=== PATIENT | female | born 1940 | race Caucasian/White ===

== ENCOUNTER → 2016-06-07 | Outpatient (CLI) | payer MEDICARE, MEDICAID | END | disposition home or self-care (01) | LOC: BFHH 11:11 | PROVIDERS: ATTEND Family Medicine | DX: I13.0 Hypertensive heart and chronic kidney disease with heart failure and stage 1 through stage 4 chronic kidney disease, or unspecified chronic kidney disease (principal); I50.1 Left ventricular failure, unspecified; N18.9 Chronic kidney disease, unspecified ==

== ENCOUNTER → 2017-02-07 | Outpatient (CLI) | payer MEDICARE, MEDICAID | END | disposition home or self-care (01) | LOC: BFHOS 10:12 | PROVIDERS: ATTEND Family Medicine | DX: E78.2 Mixed hyperlipidemia (principal); I10 Essential (primary) hypertension; E11.9 Type 2 diabetes mellitus without complications ==

== ENCOUNTER → 2017-09-12 | Outpatient (CLI) | payer MEDICARE, MEDICAID | LOC: BFHOS 12:15 | PROVIDERS: ATTEND Family Medicine | DX: E78.5 Hyperlipidemia, unspecified (principal); I13.0 Hypertensive heart and chronic kidney disease with heart failure and stage 1 through stage 4 chronic kidney disease, or unspecified chronic kidney disease; N18.9 Chronic kidney disease, unspecified; E11.22 Type 2 diabetes mellitus with diabetic chronic kidney disease; R94.5 Abnormal results of liver function studies ==

== ENCOUNTER → 2017-12-12 | Outpatient (CLI) | payer MEDICARE, MEDICAID | LOC: BFHH 11:15 | PROVIDERS: ATTEND Family Medicine | DX: I13.0 Hypertensive heart and chronic kidney disease with heart failure and stage 1 through stage 4 chronic kidney disease, or unspecified chronic kidney disease (principal); N18.9 Chronic kidney disease, unspecified; I50.1 Left ventricular failure, unspecified ==

== ENCOUNTER → 2018-04-04 | Outpatient (CLI) | payer MEDICARE, MEDICAID | LOC: BFHH 09:50 | PROVIDERS: ATTEND Family Medicine | DX: I13.0 Hypertensive heart and chronic kidney disease with heart failure and stage 1 through stage 4 chronic kidney disease, or unspecified chronic kidney disease (principal); N18.9 Chronic kidney disease, unspecified; I50.1 Left ventricular failure, unspecified; E78.5 Hyperlipidemia, unspecified ==

== ENCOUNTER → 2018-07-10 | Outpatient (CLI) | payer MEDICARE, MEDICAID | LOC: BFHH 10:13 | PROVIDERS: ATTEND Family Medicine | DX: I13.0 Hypertensive heart and chronic kidney disease with heart failure and stage 1 through stage 4 chronic kidney disease, or unspecified chronic kidney disease (principal); I50.9 Heart failure, unspecified; E11.22 Type 2 diabetes mellitus with diabetic chronic kidney disease ==

== ENCOUNTER → 2020-02-13 | Outpatient (CLI) | payer MEDICARE, MEDICAID | LOC: BFHH 11:56 | PROVIDERS: ATTEND Family Medicine | DX: I69.351 Hemiplegia and hemiparesis following cerebral infarction affecting right dominant side (principal); I13.0 Hypertensive heart and chronic kidney disease with heart failure and stage 1 through stage 4 chronic kidney disease, or unspecified chronic kidney disease; N18.9 Chronic kidney disease, unspecified; I50.1 Left ventricular failure, unspecified; E11.42 Type 2 diabetes mellitus with diabetic polyneuropathy; D50.0 Iron deficiency anemia secondary to blood loss (chronic); E78.2 Mixed hyperlipidemia ==

== ENCOUNTER 2020-05-11 13:48 | Observation (INO) | payer MEDICARE, MEDICAID ==
--- NOTE | 2020-05-11 14:32 | RAD ---
EXAM DESCRIPTION: Pelvis, AP radiograph CLINICAL HISTORY: Fall with left hip pain FINDINGS/ IMPRESSION: Osteopenia. Irregularity and lucency of the left greater trochanter consistent with a nondisplaced fracture. No femoral neck fracture. No lytic or blastic bony lesion Moderate osteoarthritis bilateral sacroiliac joints. Mild osteoarthritis bilateral hips. Enthesophytes at tendon attachments Atherosclerotic vascular calcifications Electronically signed by: Tonio Bar MD 05/11/2020 2:31 PM [facility]
--- NOTE | 2020-05-11 14:34 | RAD ---
EXAM DESCRIPTION: Left femur, 4 radiographs CLINICAL HISTORY: Fall injury. Left hip pain FINDINGS/ IMPRESSION: Irregularity and lucency of the greater trochanter left hip consistent with a trochanteric fracture. Questionable faint lucency partially extending intertrochanteric on the frog-leg lateral. Recommend CT for further evaluation. No evidence of femoral neck fracture. Normal contour of the femoral head Osteopenia. No lytic or blastic bony lesion. Left total knee arthroplasty. No fracture of the distal femur Electronically signed by: Tonio Bar MD 05/11/2020 2:32 PM [facility]
--- NOTE | 2020-05-11 14:35 | RAD ---
EXAM DESCRIPTION: Left knee, 3 radiographs CLINICAL HISTORY: Fall injury. Knee pain FINDINGS/ IMPRESSION: Total knee arthroplasty. No periprosthetic fracture or osteolysis Osteopenia. No large joint effusion. No diagnostic soft tissue injury. Atherosclerotic calcifications Electronically signed by: Tonio Bar MD 05/11/2020 2:33 PM [facility]
--- NOTE | 2020-05-11 15:09 | ED.PDOC ---
History of Present Illness - General Chief Complaint: Trauma Stated Complaint: left leg and hip pain from fall Time Seen by Provider: 05/11/20 14:09 Source: patient, RN notes reviewed, Vital Signs reviewed Exam Limitations: no limitations, other - History of Present Illness Initial Comments: Patient is a 80-year-old white female who presents s/p fall at home with complaints of left hip pain and inability to walk due to the pain. The pain is stabbing in nature. Is worse with ambulation or movement. Is better when she remains still. The pain is constant. The pain radiates down her left leg. Occurred: just prior to arrival Severity: moderate Pain Location: lower extremity Method of Injury: fall Improving Factors: nothing Worsening Factors: movement Loss of Consciousness: no loss of consciousness Associated Symptoms (Fall): trouble walking Allergies/Adverse Reactions: Allergies NO KNOWN ALLERGY Allergy (Unverified 05/11/20 14:26) Home Medications: Ambulatory Orders Bacitracin (Ophthalmic) [Bacitracin] 500 unit OP DAILY PRN 07/28/14 Bimatoprost 0.01% Ophth [Lumigan Opth Bre] 0.03 % OP BEDTIME 07/28/14 Fenofibrate [Tricor] 145 mg PO DAILY 07/28/14 Gabapentin 300 mg PO BID 07/28/14 HYDROcodone 10MG/APAP 325MG [[place] 10/325] 1 ea PO Q4H PRN 07/28/14 Hydrochlorothiazide 12.5 mg PO DAILY 07/28/14 Lisinopril [Prinivil] 40 mg PO DAILY 07/28/14 Losartan Potassium 100 mg PO DAILY 07/28/14 Metformin HCl [Metformin Hydrochloride] 1,000 mg PO BIDFD 07/28/14 Pantoprazole Tablet [Protonix] 40 mg PO ACBK 07/28/14 Simvastatin 40 mg PO BEDTIME 07/28/14 Temazepam [Restoril] 15 mg PO BEDTIME 07/28/14 Torsemide [Demadex] 20 mg PO DAILY 07/28/14 cycloSPORINE 0.05% OPTH [Restasis] 0.05 % OP BID 07/28/14 Review of Systems - Review of Systems Constitutional: States: no symptoms reported, see HPI. Denies: chills, fever, malaise, weakness EENTM: States: no symptoms reported. Denies: eye pain, blurred vision, double vision, throat pain Respiratory: States: no symptoms reported. Denies: cough, short of breath, stridor, wheezing Cardiology: States: no symptoms reported. Denies: chest pain, palpitations, syncope Gastrointestinal/Abdominal: States: no symptoms reported. Denies: abdominal pain, diarrhea, nausea, vomiting Genitourinary: States: no symptoms reported. Denies: dysuria, frequency Musculoskeletal: States: see HPI, joint pain - left hip Skin: States: no symptoms reported. Denies: change in color, rash Neurological: States: no symptoms reported. Denies: tingling, tremors, weakness Endocrine: States: no symptoms reported. Denies: increased hunger, increased th irst, increased urine Hematologic/Lymphatic: States: no symptoms reported. Denies: blood clots, easy bleeding All other Systems: Reviewed and Negative Past Medical History (General) - Patient Medical History Hx Seizures: No Hx Stroke: Yes Hx Dementia: No Hx Asthma: No Hx of COPD: No Hx Cardiac Disorders: Yes Hx Congestive Heart Failure: Yes Hx Pacemaker: No Hx Hypertension: Yes Hx Thyroid Disease: No Hx Diabetes: Yes Hx Gastroesophageal Reflux: No Hx Renal Disease: No Hx Cancer: No Hx Hepatitis C: No Hx MRSA: No - Vaccination History Hx Tetanus, Diphtheria Vaccination: Yes Hx Influenza Vaccination: Yes Hx Pneumococcal Vaccination: Yes - Social History Hx Tobacco Use: Yes Hx Alcohol Use: No Hx Substance Use: No Hx Physical Abuse: No Hx Emotional Abuse: No - Female History Patient is a Female of Child Bearing Age (10 -59 yrs old): No Family Medical History - Family History Mother Living Status: Still Living Hx Family Hypertension: Yes Hx Cardiac Disease: Yes Father Living Status: Hx Cardiac Disease: Yes Physical Exam - Physical Exam General Appearance: Alert, Anxious, Obvious distress, Well Developed, Well Groomed, Well Hydrated, Well Nourished Head Injury: no evidence of injury Eye Exam: bilateral normal ENT Exam: hearing grossly normal, no evidence of ENT injury, no dental injury Neck Exam: full range of motion, normal alignment Cardiovascular/Respiratory: regular rate, rhythm, no M/R/G, normal peripheral pulses, no JVD, normal breath sounds, no respiratory distress Gastrointestinal/Abdominal: normal bowel sounds, non tender, soft Back Exam: normal inspection, no CVA tenderness Extremity Exam: no pedal edema, pelvis stable, bony-point tenderness - left hip 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 I discussed this with the on-call orthopedist, Dr. Gutierrez, and he will consult on the patient I will admit the patient to the hospitalist service. Patient has been given pain medication and antiemetics. Awaiting lab work and EKG. 05/11/20 16:48 A[address] placement into bed at this time. Patient is resting quietly and comfortably. Gilbert Bailey M.D. #[id number] - Results/Orders Results/Orders: EXAM DESCRIPTION: Pelvis, AP radiograph CLINICAL HISTORY: Fall with left hip pain FINDINGS/ IMPRESSION: Osteopenia. Irregularity and lucency of the left greater trochanter consistent with a nondisplaced fracture. No femoral neck fracture. No lytic or blastic bony lesion Moderate osteoarthritis bilateral sacroiliac joints. Mild osteoarthritis bilateral hips. Enthesophytes at tendon attachments Atherosclerotic vascular calcifications Electronically signed by: Tonio Bar MD 05/11/2020 2:31 PM EXAM DESCRIPTION: Left knee, 3 radiographs CLINICAL HISTORY: Fall injury. Knee pain FINDINGS/ IMPRESSION: Total knee arthroplasty. No periprosthetic fracture or osteolysis Osteopenia. No large joint effusion. No diagnostic soft tissue injury. Atherosclerotic calcifications Electronically signed by: Tonio Bar MD 05/11/2020 2:33 PM EXAM DESCRIPTION: Left femur, 4 radiographs CLINICAL HISTORY: Fall injury. Left hip pain FINDINGS/ IMPRESSION: Irregularity and lucency of the greater trochanter left hip consistent with a trochanteric fracture. Questionable faint lucency partially extending intertrochanteric on the frog-leg lateral. Recommend CT for further evaluation. No evidence of femoral neck fracture. Normal contour of the femoral head Osteopenia. No lytic or blastic bony lesion. Left total knee arthroplasty. No fracture of the distal femur Electronically signed by: Tonio Bar MD 05/11/2020 2:32 PM EXAM DESCRIPTION: CT-Head CLINICAL HISTORY: fall with confusion COMPARISON: 08/08/2014 TECHNIQUE: Multiple axial images of the head without contrast. Multiplanar reformatted images. This exam was performed according to our departmental dose-optimization program, which includes automated exposure control, adjustment of the mA and/or kV according to patient size and/or use of iterative reconstruction technique. FINDINGS: No CT evidence of hemorrhage or mass effect. Large chronic left MCA territory infarct with frontal and temporal encephalomalacia which is new since the 2014 exam. Associated ex vacuo dilatation of the left lateral ventricle. Moderate generalized volume loss and moderate patchy supratentorial white matter hypodensities. There are no abnormal extra-axial fluid collections. Calcific plaque in the visualized arteries. There is no acute calvarial defect. The visualized paranasal sinuses and the mastoids are clear. IMPRESSION: 1. No CT evidence of an acute intracranial abnormality. If there is concern for an acute or subacute infarct, consider follow-up MRI. 2. Chronic left MCA territory infarct. 3. Advanced senescent changes. Electronically signed by: Shawn Metz MD 05/11/2020 3:14 PM [employer] WORK SPECIALIST EXAM DESCRIPTION: CT-Cervical Spine CLINICAL HISTORY: fall with pain COMPARISON: None Available. TECHNIQUE: Multiple axial images of the cervical spine without contrast. Multiplanar reformatted images. This exam was performed according to our departmental dose-optimization program, which includes automated exposure control, adjustment of the mA and/or kV according to patient size and/or use of iterative reconstruction technique. FINDINGS: Diffusely heterogeneous appearance of the marrow structures with mixed areas of sclerosis and lucency/cystic change. Reversal of the normal cervical lordosis. Vertebral body stature is maintained. No acute fracture. Advanced multilevel spondylitic changes with severe disc narrowing at C4-C5 and C5-C6. More mild to moderate disc narrowing at the remaining levels. Advanced multilevel hypertrophic facet degenerative changes, disc osteophyte complexes, and uncovertebral spurring. Up to moderate spinal canal stenosis and moderate to severe bilateral foraminal stenoses at C4-C5. Less pronounced stenoses at the remaining levels. Calcific plaque in the visualized arteries. Advanced degenerative changes in both sternoclavicular joints, left more pronounced than right. Partially imaged cardiac pacemaker leads. 1.5 cm nodule in the left thyroid lobe. The visualized lung apices are clear. IMPRESSION: 1. No CT evidence of acute fracture of the cervical spine. 2. Heterogeneous appearance of the marrow structures. This is nonspecific but favored to be secondary to a combination of osteopenia and advanced degenerative changes. A marrow infiltrating process is not totally excluded. Consider correlation with nuclear medicine whole-body bone scan. 3. Advanced multilevel spondylitic changes. 4. Nodule in the left thyroid lobe measuring 1.5 cm. Recommend thyroid US. Reference: J Am Leonie Radiol. 2015 May;12(2): 143-50. Electronically signed by: Shawn Metz MD 05/11/2020 3:22 PM [employer] WORK SPECIALIST EXAM DESCRIPTION: Chest,1 View CLINICAL HISTORY: 66 years Male, chest pain COMPARISON: April 02, 2016 TECHNIQUE: AP portable chest. FINDINGS: Fair expansion of the lungs is evident without consolidation, layering effusion, or large mass. Heart size and vascularity appear normal for AP technique and degree of inspiration. No gross bony, hilar, or mediastinal abnormalities are noted. IMPRESSION: Normal chest, one view Electronically signed by: Tonio Vieira MD 05/11/2020 11:59 AM EKG performed on 11 May 2020 at 1613 hrs.: Electronic pacemaker at 60 bpm, normal axis deviation, cannot rule out inferior infarct, age indeterminate, abnormal EKG. No comparison EKG available at this time. 05/11/20 15:15 EKG .ONCE 05/11/20 15:38 URINE CULTURE W/COLONY COUNT Stat Laboratory Results - last 24 hr 05/11/20 05/11/20 05/11/20 14:59 14:59 15:38 WBC 7.4 RBC 4.08 L Hgb 10.9 L Hct 32.7 L MCV 80.1 L MCH 26.8 L MCHC 33.5 RDW 14.7 H Plt Count 323 MPV 7.1 L Absolute Neuts (auto) 6.00 Absolute Lymphs (auto) 0.60 L Absolute Monos (auto) 0.50 Absolute Eos (auto) 0.30 Absolute Basos (auto) 0.00 Neutrophils % 80.8 H Lymphocytes % 8.4 L Monocytes % 6.4 Eosinophils % 3.7 Basophils % 0.7 Sodium 127 L Potassium 4.2 Chloride 94 L Carbon Dioxide 24 Anion Gap 13.2 BUN 14 Creatinine 1.00 BUN/Creatinine Ratio 14.0 Random Glucose 149 H Serum Osmolality 258.5 L Calcium 8.7 Total Bilirubin 0.5 AST 20 ALT 8 L Alkaline Phosphatase 29 L Serum Total Protein 6.6 Albumin 3.7 Globulin 2.9 Albumin/Globulin Ratio 1.3 Lipase 24 Urine Color Yellow Urine Appearance Clear Urine pH 7.5 Ur Specific [place] 1.020 Urine Protein Trace Urine Glucose (UA) Negative Urine Ketones Negative Urine Blood Negative Urine Nitrite Positive H Urine Bilirubin Negative Urine Urobilinogen 1.0 Ur Leukocyte Esterase Small H Urine RBC 3-5 H Urine WBC >50 H Ur Epithelial Cells 1-3 Urine Bacteria 4+ H Urine Mucus Small Vital Signs 05/11/20 05/11/20 14:11 14:28 Temperature 97.9 F Pulse Rate [ 60 60 Left Radial] Respiratory 20 Rate Blood Pressure 120/78 [Right Arm] O2 Sat by Pulse 93 L Oximetry Departure - Departure Clinical Impression: Fracture, intertrochanteric, left femur Qualifiers: Encounter type: initial encounter Fracture type: closed Fracture alignment: nondisplaced Qualified Code(s): S72.145A - Nondisplaced intertrochanteric fracture of left femur, initial encounter for closed fracture Fall Qualifiers: Encounter type: initial encounter Qualified Code(s): W19.XXXA - Unspecified fall, initial encounter Time of Disposition: 16:00 Disposition: Admit Patient Condition: Fair Departure Forms: ED Discharge - Pt. Copy, Patient Portal Self Enrollment Instructions: DI for Trauma Diet: resume usual diet Activity: as per physical therapy Referrals: Mckay Portillo MD [Primary Care Provider] - 1-2 Weeks Home Medications: Ambulatory Orders Bacitracin (Ophthalmic) [Bacitracin] 500 unit OP DAILY PRN 07/28/14 Bimatoprost 0.01% Ophth [Lumigan Opth Bre] 0.03 % OP BEDTIME 07/28/14 Fenofibrate [Tricor] 145 mg PO DAILY 07/28/14 Gabapentin 300 mg PO BID 07/28/14 HYDROcodone 10MG/APAP 325MG [[place] 10/325] 1 ea PO Q4H PRN 07/28/14 Hydrochlorothiazide 12.5 mg PO DAILY 07/28/14 Lisinopril [Prinivil] 40 mg PO DAILY 07/28/14 Losartan Potassium 100 mg PO DAILY 07/28/14 Metformin HCl [Metformin Hydrochloride] 1,000 mg PO BIDFD 07/28/14 Pantoprazole Tablet [Protonix] 40 mg PO ACBK 07/28/14 Simvastatin 40 mg PO BEDTIME 07/28/14 Temazepam [Restoril] 15 mg PO BEDTIME 07/28/14 Torsemide [Demadex] 20 mg PO DAILY 07/28/14 cycloSPORINE 0.05% OPTH [Restasis] 0.05 % OP BID 07/28/14 Decision To Admit - Decistion To Admit Decision to Admit Date: 05/11/20 Decision to Admit Time: 16:00
[2020-05-11] MEDS ORDERED: ONDANSETRON INJ 4 MG/2 ML VIAL IV ONE (15:14)
[2020-05-11] MEDS ORDERED: MORPHINE SULFATE INJ 10 MG/ML VIAL IV ONE (15:14)
--- NOTE | 2020-05-11 15:16 | CT ---
EXAM DESCRIPTION: CT-Head CLINICAL HISTORY: fall with confusion COMPARISON: 08/08/2014 TECHNIQUE: Multiple axial images of the head without contrast. Multiplanar reformatted images. This exam was performed according to our departmental dose-optimization program, which includes automated exposure control, adjustment of the mA and/or kV according to patient size and/or use of iterative reconstruction technique. FINDINGS: No CT evidence of hemorrhage or mass effect. Large chronic left MCA territory infarct with frontal and temporal encephalomalacia which is new since the 2014 exam. Associated ex vacuo dilatation of the left lateral ventricle. Moderate generalized volume loss and moderate patchy supratentorial white matter hypodensities. There are no abnormal extra-axial fluid collections. Calcific plaque in the visualized arteries. There is no acute calvarial defect. The visualized paranasal sinuses and the mastoids are clear. IMPRESSION: 1. No CT evidence of an acute intracranial abnormality. If there is concern for an acute or subacute infarct, consider follow-up MRI. 2. Chronic left MCA territory infarct. 3. Advanced senescent changes. Electronically signed by: Shawn Metz MD 05/11/2020 3:14 PM [facility]
--- NOTE | 2020-05-11 15:24 | CT ---
EXAM DESCRIPTION: CT-Cervical Spine CLINICAL HISTORY: fall with pain COMPARISON: None Available. TECHNIQUE: Multiple axial images of the cervical spine without contrast. Multiplanar reformatted images. This exam was performed according to our departmental dose-optimization program, which includes automated exposure control, adjustment of the mA and/or kV according to patient size and/or use of iterative reconstruction technique. FINDINGS: Diffusely heterogeneous appearance of the marrow structures with mixed areas of sclerosis and lucency/cystic change. Reversal of the normal cervical lordosis. Vertebral body stature is maintained. No acute fracture. Advanced multilevel spondylitic changes with severe disc narrowing at C4-C5 and C5-C6. More mild to moderate disc narrowing at the remaining levels. Advanced multilevel hypertrophic facet degenerative changes, disc osteophyte complexes, and uncovertebral spurring. Up to moderate spinal canal stenosis and moderate to severe bilateral foraminal stenoses at C4-C5. Less pronounced stenoses at the remaining levels. Calcific plaque in the visualized arteries. Advanced degenerative changes in both sternoclavicular joints, left more pronounced than right. Partially imaged cardiac pacemaker leads. 1.5 cm nodule in the left thyroid lobe. The visualized lung apices are clear. IMPRESSION: 1. No CT evidence of acute fracture of the cervical spine. 2. Heterogeneous appearance of the marrow structures. This is nonspecific but favored to be secondary to a combination of osteopenia and advanced degenerative changes. A marrow infiltrating process is not totally excluded. Consider correlation with nuclear medicine whole-body bone scan. 3. Advanced multilevel spondylitic changes. 4. Nodule in the left thyroid lobe measuring 1.5 cm. Recommend thyroid US. Reference: J Am Leonie Radiol. 2015 May;12(2): 143-50. Electronically signed by: Shawn Metz MD 05/11/2020 3:22 PM [facility]
--- NOTE | 2020-05-11 16:00 | RAD ---
EXAM DESCRIPTION: Chest,1 View CLINICAL HISTORY: 80 years Female, s/p fall with left hip frx COMPARISON: Previous chest x-ray August 08, 2014 TECHNIQUE: AP portable chest. FINDINGS: Heart size is prominent with normal pulmonary vascularity. Cardiac pacer is in place with electrode lead tips in the region of the right atrium and right ventricle. No consolidating infiltrate. No pulmonary mass or worrisome nodule. No pneumothorax or pleural effusion. Degenerative changes in the shoulders. Bones are otherwise unremarkable. IMPRESSION: No acute process is identified in the chest. Electronically signed by: Nba Banks MD 05/11/2020 3:59 PM MEDICAL TECHNOLOGIST GENERALIST
--- NOTE | 2020-05-11 17:16 | HP ---
SUPERVISING PHYSICIAN: Alex Perez M.D. CHIEF COMPLAINT: Left hip pain. HISTORY OF PRESENT ILLNESS: This is a 80 year-old female who came to the Emergency Room with left hip pain status post a fall at home. The patient has a history of a stroke but has not had any issues with walking. Anyhow, there was no syncope. The fall was due to tripping. In the Emergency Room, her workup included multiple films, including a CT of the cervical spine which did not show any acute findings. CT scan of the head did not show any acute findings. There was a chronic left MCA stroke that was known about. However, the femur x-ray s were consistent with a left intertrochanteric femur fracture. Therefore she was referred for admission. After surgery was consulted, Dr. Gutierrez performed surgery. A urinalysis was also consistent with urinary tract infection. She was given Rocephin. Hemoglobin 10.9, normal white count at 7.4, but neutrophils were 80.8. Chemistry with a low sodium at 127, glucose 149, otherwise unremarkable. PAST MEDICAL HISTORY: 1. Stroke. 2. Hypertension. 3. Hyperlipidemia. 4. Distant history of a GI bleed due to a bleeding ulcer. PAST SURGICAL HISTORY: 1. Hysterectomy. 2. Bilateral knee replacements. 3. Esophagogastroduodenoscopy and colonoscopy. 4. Pacemaker. CURRENT MEDICATIONS: Please see Med. Rec. list once they are verified in the computer. ALLERGIES: NO KNOWN DRUG ALLERGIES. FAMILY HISTORY: Reviewed and noncontributory. SOCIAL HISTORY: The patient lives at home with her mother, but her mother . Her sister is at the bedside right now. Distant history of smoking but no lung issues. No alcohol. No illicit drugs. REVIEW OF SYSTEMS: Other than the left hip pain, a 12 system review of systems is without any abnormality. PHYSICAL EXAMINATION: VITAL SIGNS: Blood pressure 112/65, heart rate 54, respiratory rate 18, temperature 98.1, oxygen saturation 94%. GENERAL: Ms. Go is a 80 year-old female who looks chronically ill but she is in no active distress. NEUROLOGIC: The patient is alert. She does have an abnormal speech pattern which is chronic for her status post stroke. CHEST: Lungs are clear to auscultation bilaterally. CARDIOVASCULAR: The patient has a regular rate and rhythm. Normal S1 and S2. ABDOMEN: Soft. Positive bowel sounds. EXTREMITIES: Lower extremities with 2+ pulses. Capillary refill is less than 2 seconds. Left hip does have some tenderness to palpation. There is no great outward rotation of the hip. LABORATORY: Labs and films are as discussed in the History of Present Illness. ASSESSMENT: 1. Left intertrochanteric femur fracture secondary to a fall. 2. Hypertension. 3. History of stroke. 4. Urinary tract infection. PLAN: At this time the patient will be admitted. NPO after midnight. Placed on Rocephin for the urinary tract infection. Hold off on anticoagulation until postoperative. Start her on a PPI for GI ulcer prophylaxis. Resume home medications once they are verified in the computer as well. Her sister is at her bedside and states that she wants her to come to [place] postoperatively for rehab and I will relay this to social work. #[id number]
[2020-05-11] MEDS ORDERED: cefTRIAXone SODIUM 1 GM in SODIUM CHL 0.9% 50ML MIN-BAG+ 50 ML IVPB SCH (17:30)
[2020-05-11] MEDS ORDERED: MORPHINE SULFATE INJ 10 MG/ML VIAL IV STA (18:31)
[2020-05-11] MEDS ORDERED: SODIUM CHLORIDE 0.9% (FLUSH) 10 ML SYG IV PRN (18:37)
[2020-05-11] MEDS ORDERED: IV SET AND CAP CHANGE INJ INJ SCH (19:00)
[2020-05-11] MEDS: SODIUM CHLORIDE 0.9% 1000ML 1,000 ML IVS PRN (20:30)
[2020-05-11] MEDS ORDERED: ONDANSETRON INJ 4 MG/2 ML VIAL IV PRN (21:36)
[2020-05-12] MEDS ORDERED: PANTOPRAZOLE SODIUM IV 40 MG VIAL ONE (04:56)
[2020-05-12] MEDS: MORPHINE SULFATE INJ 10 MG/ML VIAL IV PRN ×4 (05:32→17:33)
[2020-05-12] MEDS ORDERED: PANTOPRAZOLE SODIUM IV 40 MG VIAL IV SCH (06:30)
[2020-05-12] MEDS: SODIUM CHLORIDE 0.9% 1000ML 1,000 ML IVS PRN (08:44)
--- NOTE | 2020-05-12 08:47 | CT ---
EXAM: Pelvis INDICATION: Left Hip FX . COMPARISON: Single view of the pelvis and left femur radiographs 05/11/2020 TECHNIQUE: CT of the pelvis was performed without IV contrast. Multiple axial images and multiplanar reconstructions were generated. 3-D volume rendered reconstruction was also performed and interpreted. This exam was performed according to our departmental dose-optimization program, which includes automated exposure control, adjustment of the mA and/or kV according to patient size and/or use of iterative reconstruction technique. FINDINGS: Severe osteopenia. Horizontally oriented subtle linear lucency at the greater trochanter of the proximal left femur is compatible with nondisplaced fracture. This appears to probably involve the greater trochanter only, although evaluation for nondisplaced acute fracture lines is limited by severe osteopenia. No other definite fractures are identified in the pelvis. The pubic symphysis and sacroiliac joints are intact. No joint dislocation. Moderate degenerative change in the hips. Degenerative changes are also noted in the visualized lower lumbar spine. No destructive osseous lesion is identified. A bone island is noted in the left proximal femur. Vascular calcifications. A Greene catheter is noted within the urinary bladder, which is collapsed. IMPRESSION: 1. Horizontally oriented acute nondisplaced fracture of the left greater trochanter. The fracture appears to involve the greater trochanter only, although the evaluation for nondisplaced acute fracture lines is limited by severe osteopenia. 2. No other fractures are identified in the pelvis. 3. No joint dislocation. Electronically signed by: Christiana Esteban MD 05/12/2020 8:45 AM [employer]
[2020-05-12] MEDS: NYSTATIN POWDER 15GM BTTL TOP SCH ×2 (09:05→21:12)
[2020-05-12] MEDS: PANTOPRAZOLE SODIUM TAB 40 MG PO SCH ×2 (09:05→15:30)
[2020-05-12] MEDS: FENOFIBRIC ACID 135 MG CAP PO SCH (09:05)
[2020-05-12] MEDS: OXYBUTYNIN CL 5 MG TAB PO SCH ×3 (09:40→21:12)
[2020-05-12] MEDS: LISINOPRIL 10 MG TAB PO SCH ×2 (09:40→21:12)
--- NOTE | 2020-05-12 10:15 | PN ---
SUPERVISING PHYSICIAN: Alex Perez MD DATE: 05/12/20 SUBJECTIVE: The patient with no significant complaints of pain at this time. She is alert and oriented. Her sister is at bedside. I did discuss the case with Dr. Gutierrez who got a CT scan this morning to further evaluate. The nondisplaced greater trochanter fracture does not extend into the neck or intertrochanteric region, therefore, no surgical intervention will need to be done. His suggestion was physical therapy evaluation, but limit abduction and have her followup in one month. I did discuss this with the sister and the patient. OBJECTIVE: VITAL SIGNS: Blood pressure 134/60, heart rate 66, respiratory rate 18, temperature 97.7, oxygen saturation 91% on room air. GENERAL: Ms. Go is a 80-year-old female in no active distress. NEUROLOGIC: The patient is alert. LUNGS: Clear to auscultation bilaterally. CARDIOVASCULAR: Regular rate and rhythm. Normal S1, S2. ABDOMEN: Soft. Positive bowel sounds. EXTREMITIES: Lower extremities with no edema. LABORATORY: Labs were reviewed and show WBC 6.0, hemoglobin 10.1, platelet count 279. Sodium is a little bit better at 129 from 127. MICROBIOLOGY: Urine culture has come back with gram negative rods with final identification not seen quite yet. ASSESSMENT: 1. Nondisplaced left greater trochanter fracture that will not require surgical intervention. 2. Hypertension. 3. History of stroke. 4. Urinary tract infection. PLAN: Plan for physical therapy evaluation as noted above with no abduction. Followup in one month with orthopedics. The sister wants her to go to [place], so Social Work can work on that. We will discontinue the Greene catheter and put her back on a diet. Given the gram negative rods, I will continue the Rocephin for the urinary tract infection. We will discontinue IV fluids as well given the fact she is able to eat and drink with no problems. [id number] [facility]
[2020-05-12] MEDS ORDERED: SODIUM CHL 0.9% 50ML MIN-BAG+ 50 ML IVPB ONE (14:58)
[2020-05-12] MEDS ORDERED: cefTRIAXone SODIUM 1 GM VIAL ONE (14:58)
[2020-05-12] MEDS ORDERED: ENOXAPARIN SODIUM 40 MG/0.4 ML SYG SUBCU SCH (17:00)
[2020-05-12] MEDS ORDERED: cefTRIAXone SODIUM 1 GM in SODIUM CHL 0.9% 50ML MIN-BAG+ 50 ML IVPB SCH (17:30)
[2020-05-12] MEDS ORDERED: SIMVASTATIN 20 MG TAB PO SCH (21:00)
[2020-05-13] MEDS: MORPHINE SULFATE INJ 10 MG/ML VIAL IV PRN (00:46)
[2020-05-13] MEDS: PANTOPRAZOLE SODIUM TAB 40 MG PO SCH (06:38)
[2020-05-13] MEDS: LISINOPRIL 10 MG TAB PO SCH (08:07)
[2020-05-13] MEDS: OXYBUTYNIN CL 5 MG TAB PO SCH (08:07)
[2020-05-13] MEDS: FENOFIBRIC ACID 135 MG CAP PO SCH (08:07)
[2020-05-13 09:02] VITALS: BP 109/49; TEMP 97.2; O2SAT 96
[2020-05-13] MEDS: NYSTATIN POWDER 15GM BTTL TOP SCH (09:03)
[2020-05-13] MEDS ORDERED: HYDROcodone 5MG/APAP 325MG 1 EA TAB PO PRN (09:33)
--- NOTE | 2020-05-13 10:43 | RAD ---
EXAM DESCRIPTION: Shoulder,Right 2 or More Views CLINICAL HISTORY: 80 years Female, fall pain in both shoulders COMPARISON: None. FINDINGS: 2 views of the right shoulder show no acute fracture or dislocation. Degenerative changes in the right AC joint. Superior migration of the right humeral head relative to the glenoid suggestive of chronic right-sided rotator cuff tear. Old healed right-sided rib fracture. Cardiac pacemaker leads partially visualized. IMPRESSION: Degenerative changes and probable chronic right-sided rotator cuff tear without acute right shoulder abnormality. Electronically signed by: Vincent Maradiaga MD 05/13/2020 10:42 AM [facility]
--- NOTE | 2020-05-13 10:45 | RAD ---
EXAM DESCRIPTION: Shoulder,Left 2 or More Views CLINICAL HISTORY: 80 years Female, fall pain in both shoulders COMPARISON: None. FINDINGS: 2 views of the left shoulder show no acute fracture or malalignment. Degenerative changes in the left AC joint including mild undersurface spurring. Degenerative calcification arising from the inferior glenoid margin. Slight superior migration of the left humeral head relative to the glenoid. IMPRESSION: Degenerative changes with a questionable chronic left-sided rotator cuff tear. No acute left shoulder abnormality. Electronically signed by: Vincent Maradiaga MD 05/13/2020 10:43 AM [facility]
[2020-05-13] MEDS ORDERED: HYDROcodone 5MG/APAP 325MG 1 EA TAB ONE (11:08)
--- NOTE | 2020-05-15 09:19 | DS ---
SUPERVISING PHYSICIAN: Alex Perez MD ADMISSION DIAGNOSIS: 1. Left intertrochanteric femur fracture secondary to a fall. 2. Hypertension. 3. History of stroke. 4. Urinary tract infection. DISCHARGE DIAGNOSIS: 1. Nondisplaced left greater trochanter fracture that will not require surgical intervention. 2. Urinary tract infection due to Klebsiella pneumoniae, sensitive to all antibiotics on culture and sensitivity except for ampicillin with the patient being treated with Rocephin. 3. Hypertension. 4. History of stroke. REASON FOR HOSPITALIZATION: This is a 80 year-old female who came to the Emergency Room with left hip pain status post a fall at home. The patient has a history of a stroke but has not had any issues with walking. Anyhow, there was no syncope. The fall was due to tripping. In the Emergency Room, her workup included multiple films, including a CT of the cervical spine which did not show any acute findings. CT scan of the head did not show any acute findings. There was a chronic left MCA stroke that was known about. However, the femur x-ray s were consistent with a left intertrochanteric femur fracture. Therefore she was referred for admission after surgery was consulted with Dr. Gutierrez to perform surgery. A urinalysis was also consistent with urinary tract infection. She was given Rocephin. Hemoglobin 10.9, normal white count at 7.4, but neutrophils were 80.8. Chemistry with a low sodium at 127, glucose 149, otherwise unremarkable. LABORATORY: White count on discharge was 6,000, hemoglobin 10.1, hematocrit 30.6, platelet count 279,000. Differential showed a slight left shift. Chemistries showed sodium at 129 and stable, creatinine 0.87, calcium 8.5. Liver functions all within normal limits. Urinalysis on admission was positive for nitrites with small amount of leukocyte esterase, greater than 50 WBCs, RBCs 3 to 5 with 4+ bacteria. MICROBIOLOGY: Final culture results on the urine showed Klebsiella pneumoniae sensitive to all antibiotics on sensitivity report except for ampicillin. The patient was treated with Rocephin. Respiratory panel was negative for all bacterial and viral targets as tested including COVID and influenza. RADIOLOGY: Pelvis CT showed horizontally oriented nondisplaced fracture of the left greater trochanter with the fracture appearing to involve the greater trochanter only. No other fractures identified in the pelvis. No joint dislocation. She also had femur x-rays, knee x-rays, shoulder x-rays, cervical spine x-rays, CT of the head, all without any acute findings. Please see all those reports for details. 12-lead EKG showed an atrially paced rhythm. HOSPITAL COURSE: Ms. Go was admitted after being seen in the ER for hip pain and imaging studies showed a nondisplaced fracture of the left greater trochanter. She was seen by Dr. Gutierrez, orthopedic surgeon, who noted that the patient was not going to require any surgical intervention. At that point, after further visiting with family, the decision was made to transfer the patient to rehab at [facility] as the patient's family lives in [place]. She also was found to have a urinary tract infection and was started on Rocephin. She had good pain control while she was here. She had no further complications. It was felt she was stable enough to discharge to continue with outpatient rehab with arrangements through the [facility]. Vital signs on discharge at time of transfer showed temperature 97.2, pulse 65, blood pressure 109/49, respirations 18, saturation 98% on 2 liters nasal cannula. PLAN: The patient was transferred to inpatient rehab at [facility] in [place], [place]. She was to have physical therapy evaluation and further treatment. She will need followup with her primary care physician, Dr. Rios. She will continue treatment for her urinary tract infection based on culture results at the discretion of receiving facility. No medications were prescribed on discharge. All other medications prior to hospitalization were continued as per her medical administration record. DISPOSITION: The patient was transferred to inpatient rehab at [facility]. CONDITION ON DISCHARGE: Stable and improved. [facility][id number] [facility]
== END 2020-05-13 12:10 ==
LOC: ER 13:48 → MS 17:14 → INTOOBSV 17:14 → OBSVTOIN 17:14
PROVIDERS: ADMIT Nurse Practitioner; ATTEND Nurse Practitioner Family
DX: S72.115A Nondisplaced fracture of greater trochanter of left femur, initial encounter for closed fracture (principal); N39.0 Urinary tract infection, site not specified; I11.0 Hypertensive heart disease with heart failure; E78.5 Hyperlipidemia, unspecified; E11.9 Type 2 diabetes mellitus without complications; I50.9 Heart failure, unspecified; R41.0 Disorientation, unspecified; M47.812 Spondylosis without myelopathy or radiculopathy, cervical region; M48.02 Spinal stenosis, cervical region; M16.0 Bilateral primary osteoarthritis of hip; M25.512 Pain in left shoulder; M25.511 Pain in right shoulder; M85.89 Other specified disorders of bone density and structure, multiple sites; M46.1 Sacroiliitis, not elsewhere classified; Z20.822 Contact with and (suspected) exposure to COVID-19; Z79.84 Long term (current) use of oral hypoglycemic drugs; Z79.899 Other long term (current) drug therapy; Z86.73 Personal history of transient ischemic attack (TIA), and cerebral infarction without residual deficits; Z96.653 Presence of artificial knee joint, bilateral; Z95.0 Presence of cardiac pacemaker; Z87.891 Personal history of nicotine dependence; W01.0XXA Fall on same level from slipping, tripping and stumbling without subsequent striking against object, initial encounter; Y92.009 Unspecified place in unspecified non-institutional (private) residence as the place of occurrence of the external cause
CPT/HCPCS: 96361 ×2; 96374; 96375 ×2; 96376 ×3; 96372; J0696 ×2; J2270 ×7; J2405; J7030 ×2; J1650; A4216; J7050 ×2; 80048 ×2; 80053; 87086; 36415 ×4; 81001 ×2; 85025 ×2; 87186; 83690; 87088; 71045; 72170; 73562; 73030 ×2; 73551; 70450; 72192; 72125; 97162; 99285; 93005; G0378; 87581; 87486; 87633; 87635